=== PATIENT | female | born 1940 | race Caucasian/White ===

== ENCOUNTER → 2017-09-15 | Outpatient (CLI) | payer OTHER ==
[~2017-09-15] MED LIST: BIOTIN2500 MCG PO; CALCIUM + D3 E1 EACH PO; CLARITIN10 MG PO; HYDROCHLOROTHIA25 M2 PO; MEDROLDOSEPACK PO; NAPROSYN500 MG PO; NORVASC10 MG PO; OMEPRAZOLE40 MG PO; SYNTHROID125 MCG PO; ZESTRIL10 MG PO
== END ==
LOC: RAD 14:28
DX: M17.0 Bilateral primary osteoarthritis of knee (principal); M25.462 Effusion, left knee; M25.461 Effusion, right knee